=== PATIENT | male | born 1950 | race Caucasian/White ===

== ENCOUNTER → 2021-11-21 | Outpatient (CLI) | payer MEDICARE ==
[~2021-11-21] MED LIST: ALDACTONE 25MG25 MG PO; AMLODIPINE BESYL5 MG PO; CENTRUM SILVER1 EAC1 PO; CITRACAL + D M1 EACH PO; COZAAR100 MG PO; ELIQUIS5 MG PO; IRON TABLETS PO; KRILL OIL500 MG PO; SOTALOL80 MG PO; VITAMIN B-121000 MCG PO; VITAMIN D32000 UNI1 PO
== END ==
LOC: HEART 5 07:58
DX: I48.91 Unspecified atrial fibrillation (principal); R06.02 Shortness of breath; I08.3 Combined rheumatic disorders of mitral, aortic and tricuspid valves; I27.20 Pulmonary hypertension, unspecified
CPT/HCPCS: 93306

== ENCOUNTER → 2022-03-19 | Outpatient (CLI) | payer MEDICARE | LOC: HEART 5 09:59 | DX: R06.02 Shortness of breath (principal); Z79.899 Other long term (current) drug therapy | CPT/HCPCS: 94010; 94729 ==

== ENCOUNTER → 2022-05-07 | Outpatient (CLI) | payer MEDICARE | LOC: HEART 5 13:57 | DX: R00.2 Palpitations (principal); I48.0 Paroxysmal atrial fibrillation; R06.02 Shortness of breath ==